=== PATIENT | male | born 1935 | race Caucasian/White ===

== ENCOUNTER 2018-07-12 17:55 | Inpatient (IN) | payer MEDICARE, OTHER ==
[~2018-07-12] VITALS: Ht 185.4 cm; Wt 83.6 kg
[~2018-07-12 17:55] MED LIST: ATOR10 PO; BENA20 PO; DUTA.5 PO; ERYT.5TO OS; FINASTERIDE1 MG PO; LOVA20; NAPR220; Naproxen250 MG PO; Prednisone20 MG PO; TAMS.4ER PO; Zantac150 MG PO
[2018-07-12 19:18] LABS: BASOPHILS ABSOLUTE AUTO 0.08 K/mm3 (0.00-0.23); BASOPHILS PERCENT AUTO 1 % (0-2); EOSINOPHILS ABSOLUTE AUTO 0.16 K/mm3 (0.00-0.68); EOSINOPHILS PERCENT AUTO 2 % (0-6); Hematocrit 40.4 % (37.0-53.0); IMMATURE GRAN ABSOLUTE AUTO 0.06 K/mm3 (0.00-0.10); IMMATURE GRAN PERCENT AUTO 1 % (0-1); LYMPHOCYTES ABSOLUTE AUTO 1.57 K/mm3 (0.84-5.20); LYMPHOCYTES PERCENT AUTO 18 % (21-46); MONOCYTES ABSOLUTE AUTO 0.91 K/mm3 (0.16-1.47); MONOCYTES PERCENT AUTO 11 % (4-13); Mean Corpuscular HGB 30.7 pg (26.0-34.0); Mean Corpuscular HGB Conc 32.2 g/dL (31.5-36.5); Mean Corpuscular Volume 95 fL (80-100); Mean Platelet Volume 11.6 fL (9.1-12.4); NEUTROPHILS ABSOLUTE AUTO 5.84 K/mm3 (1.96-9.15); NEUTROPHILS PERCENT AUTO 68 % (41-73); Platelet Count 170 K/mm3 (150-400); RDW Standard Deviation 48.8 fL (35.1-46.3); Red Blood Cell Count 4.24 M/mm3 (4.30-5.90); White Blood Cell Count 8.62 K/mm3 (4.00-11.30)
[2018-07-12] MEDS ORDERED: Vitamin C100 M1 (19:39)
[2018-07-12] MEDS ORDERED: ERGO400 (19:39)
[2018-07-12] MEDS ORDERED: CYAN500 (19:39)
[2018-07-12 19:43] LABS: Alanine Aminotransfer (ALT/SGP 12 U/L (12-78); Albumin, Blood 3.3 g/dL (3.4-5.0); Alk Phos 27 U/L (50-136); Anion Gap 6 mmol/L (6-16); Aspartate Aminotrans (AST/SGOT 21 U/L (12-37); Bilirubin, Total 0.2 mg/dL (0.1-1.0); Blood Urea Nitrogen 34 mg/dL (8-24); CO2, Blood 25 mmol/L (21-32); Calcium, Blood 8.3 mg/dL (8.5-10.1); Chloride, Blood 108 mmol/L (98-108); Creatinine, Blood 1.03 mg/dL (0.60-1.20); Globulin, Blood 3.4 g/dL (2.2-4.0); Glomerular Filtration Rate >60 (60-); Glucose, Blood 177 mg/dL (70-99); Potassium, Blood 4.4 mmol/L (3.5-5.5); Sodium, Blood 139 mmol/L (136-145); Total Protein, Blood 6.7 g/dL (6.4-8.2)
[2018-07-12] MEDS ORDERED: Tylenol325 MG PO (19:53)
[2018-07-12] MEDS ORDERED: Benazepril HCl10 MG PO (19:53)
[2018-07-12] MEDS ORDERED: Flomax0.4 MG PO (19:53)
[2018-07-12] MEDS ORDERED: Ferrous Sulfat325 MG PO (19:53)
[2018-07-12] MEDS ORDERED: FINA5 PO (19:53)
[2018-07-12] MEDS ORDERED: ESZO3 PO (19:53)
[2018-07-12] MEDS ORDERED: Mobic15 MG PO (19:53)
[2018-07-12 21:24] LABS: International Normalized Ratio 0.97; Prothrombin Time Results 10.3 Sec (9.7-11.5)
[2018-07-12] MEDS ORDERED: MELO7.5 PO (23:19)
[2018-07-13 00:57] LABS: Source, Urine Voided
[2018-07-13 01:00] LABS: Bilirubin, Urine Neg (Neg); Blood, Urine Neg (Neg); Glucose Qualitative, Urine Neg (Neg); Ketones, Urine Neg (Neg); Leukocyte Esterase, Urine Neg (Neg); Nitrite, Urine Neg (Neg); Protein, Urine Neg (Neg); Specific Gravity, Urine 1.025 (1.003-1.022); Urobilinogen, Urine NORM (Normal)
[2018-07-13 01:05] LABS: Appearance, Urine Clear (Clear); Color, Urine Yellow (P-Yellow)
[2018-07-13 04:55] LABS: Hematocrit 37.1 % (37.0-53.0); Hemoglobin 11.7 g/dL (13.5-17.5); Mean Corpuscular HGB Conc 31.5 g/dL (31.5-36.5); Mean Corpuscular Volume 95 fL (80-100); Mean Platelet Volume 11.6 fL (9.1-12.4); Platelet Count 148 K/mm3 (150-400); RDW Coefficient Variation 14.1 % (11.7-14.2); RDW Standard Deviation 48.6 fL (35.1-46.3); White Blood Cell Count 7.03 K/mm3 (4.00-11.30)
[2018-07-13 05:35] LABS: Anion Gap 6 mmol/L (6-16); Blood Urea Nitrogen 33 mg/dL (8-24); Bun/Creatinine Ratio 37.6 (12.0-20.0); CO2, Blood 26 mmol/L (21-32); Calcium, Blood 7.6 mg/dL (8.5-10.1); Chloride, Blood 112 mmol/L (98-108); Creatinine, Blood 0.88 mg/dL (0.60-1.20); Glomerular Filtration Rate >60 (60-); Glucose, Blood 106 mg/dL (70-99); Potassium, Blood 4.2 mmol/L (3.5-5.5); Sodium, Blood 144 mmol/L (136-145)
--- NOTE | 2018-07-13 06:43 | NUR ---
SHIFT SUMMARY PT ARRIVED TO ROOM APPROX 2129. NO C/O PAIN NO STOOL. REFUSED SCD'S. SAID HE WASN'T ABLE TO SLEEP VERY WELL. A/O. USING URINAL AT BEDSIDE. PROTONIX DRIP. CALL LIGHT IN REACH
--- NOTE | 2018-07-13 08:18 | NUR ---
PT HAD 1 BM WITH RODRIGUEZ RED BLOOD IN TOILET, NOTIFIED DR SAM. WILL CONTINUE TO MONITOR.
[2018-07-13 12:20] LABS: Stool Occult Bld Immuno 1 Positive (NEGATIVE)
--- NOTE | 2018-07-13 20:18 | NUR ---
SHIFT SUMMARY PT A&OX4. ANXIOUS BUT COOPERATIVE WITH CARE. PT RESTING IN BED DURING SHIFT, SBA TO BATHROOM. PT DENIES PAIN, SOB AND N/V DUIRNG SHIFT. PT HAD X2 BMS WITH RED BLOOD, DR SAM AND DR ROBBINS NOTIFIED. DR ROBBINS AT BED SIDE THIS AFTERNOON, PT ADVANCED TO CLEAR LIQUIDS UNTIL AFTER BREAFAST ON 07/14/18, THEN NOTHING EXCEPT ICE CHIPS, PLANS FOR UPPER AND LOWER SCOPE, STARTING BOWEL PREP THIS EVENING. STOOL SAMPLE COLLECTED AND SPECIMEN SENT THIS AM. VSS. NO OTHER ACUTE CHANGES NOTED DURING SHIFT. REPORT GIVEN TO ONCOMING RN.
--- NOTE | 2018-07-14 04:41 | NUR ---
SHIFT SUMMARY PT SLEEPING, RESTING QUIETLY AT START OF SHIFT. WOKE EASILY FOR SHIFT REPORT. PT ADMITTED FOR MELENA. STARTED GOLYTELY AFTER SHIFT REPORT. STOOLS WATERY, BUT BLOODY. 2ND PART OF GOLYTELY TO BE GIVEN AT 0600. PT TO HAVE UPPER AND LOWER SCOPE TODAY; TO BE NPO EXCEPT ICE CHIPS, AFTER CL BREAKFAST. HX OF COLON RESECTION, GIB'S, AND DIVERTICULITIS. PROTONIX DRIP INFUSING PER EMAR. PT HAS BEEN INDEPENDANT TO BTHRM WITH IV PUMP. DENIED NEEDS. CALL LT IN REACH.
[2018-07-14 05:04] LABS: BASOPHILS ABSOLUTE AUTO 0.05 K/mm3 (0.00-0.23); BASOPHILS PERCENT AUTO 1 % (0-2); EOSINOPHILS ABSOLUTE AUTO 0.03 K/mm3 (0.00-0.68); EOSINOPHILS PERCENT AUTO 0 % (0-6); Hemoglobin 11.6 g/dL (13.5-17.5); IMMATURE GRAN ABSOLUTE AUTO 0.03 K/mm3 (0.00-0.10); IMMATURE GRAN PERCENT AUTO 0 % (0-1); LYMPHOCYTES ABSOLUTE AUTO 1.28 K/mm3 (0.84-5.20); LYMPHOCYTES PERCENT AUTO 17 % (21-46); MONOCYTES PERCENT AUTO 11 % (4-13); Mean Corpuscular HGB 30.4 pg (26.0-34.0); Mean Corpuscular HGB Conc 32.2 g/dL (31.5-36.5); Mean Corpuscular Volume 94 fL (80-100); Mean Platelet Volume 11.4 fL (9.1-12.4); NEUTROPHILS ABSOLUTE AUTO 5.37 K/mm3 (1.96-9.15); NEUTROPHILS PERCENT AUTO 71 % (41-73); Platelet Count 157 K/mm3 (150-400); RDW Coefficient Variation 14.1 % (11.7-14.2); RDW Standard Deviation 48.2 fL (35.1-46.3); Red Blood Cell Count 3.82 M/mm3 (4.30-5.90); White Blood Cell Count 7.56 K/mm3 (4.00-11.30)
--- NOTE | 2018-07-14 10:20 | NUR ---
GAINED PT'S PERMISSION TO CARE FOR HIM 07.15.18
--- NOTE | 2018-07-14 13:00 | NUR ---
PT TO DAY SURGERY FOR EGD AND COLONOSCOPY.
--- NOTE | 2018-07-14 13:50 | NUR ---
pt brought to [facility] in preparation for scope. 3 lead with hr 84-140's. ekg done, a-fib rvr. pt reports no history of afib. discussed with dr. hammer. then dr. monte with anethesia. decicion made to postpone procedure until better hr control and seen by cardiology. hr remain 130's on 3 lead. report given to medical floor rn and patient transfered back to room. denies any chest pain, nausea, sob.
--- NOTE | 2018-07-14 14:10 | NUR ---
CONSULT CALLED TO DR WALKER, SPOKE WITH PHYSICIAN.
--- NOTE | 2018-07-14 14:12 | NUR ---
PT RETURNED TO MEDICAL FLOOR FROM DAY SURGERY AT 1345. THE SCOPE WAS NOT FINISHED DUE TO AN EKG SHOWING AFIB WITH RVR AND A RATE OF 130 BPM. PT IS IN HIS ROOM, ASYMPTOMATIC AND ALERT AND ORIENTED. DR. SAM WAS NOTIFIED AND HAS ORDERED MEDICATIONS AND TELEMETRY. WILL TREAT PER ORDERS.
--- NOTE | 2018-07-14 14:34 | NUR ---
On 07/14/18 @0569 this patient gave this professional nursing tutor verbal consent to care for during clinicals on 07/15/18 as well as access necessary medical information.
--- NOTE | 2018-07-14 15:40 | NUR ---
THE PT RECEIVED TWO DOSES OF LOPRESSOR PER EMAR. THE PT RATE IS 93 BPM PER PCU GLACING MACHINE TENDER.
--- NOTE | 2018-07-14 16:26 | NUR ---
CALLED AND SPOKE WITH TELE CVICU NURSE, PLASTER CASTER REPORTS PT IS NSR AT 80 REPORTS CONVERTED BACK AT APROX 1535.
--- NOTE | 2018-07-14 16:55 | NUR ---
THIS PT IS ALERT AND ORIENTED AND VERY PEASANT. HE COMPLETED BOWEL CARE AT 0715 TODAY. HE WAS SCHEDULED FOR EGD AND COLONOSCOPY AT 1300. WHILE IN THE ENDOSCOPY SUITE, HE WAS FOUND TO HAVE NEW ONSET AFIB WITH A RATE IN THE 140'S. THE PROCEDURE WAS CANCELLED FOR THE DAY. THE PT WAS TRANSFERRED BACK TO HIS ROOM ON MEDICAL FLOOR AND PLACED ON TELE AND GIVEN 5MG LOPRESSOR PER EMAR TO DECREASE HR. 5MG LOPRESSOR WAS GIVEN X2 UNTIL HIS HR WAS BELOW 110. HIS CURRENT B/P IS 131/68 AND HR IS 83. HE IS NOW IN NORMAL SINUS RHYTHM WITH A RATE OF 83. AN ECHO IS BEING PERFORMED NOW. THE PT IS TO STAY ON CLEAR LIQUIDS UNTIL MIDNIGHT AND NPO AFTER MIDNIGHT.
--- NOTE | 2018-07-14 18:08 | NUR ---
Echocardiogram completed.
[2018-07-14 18:19] LABS: Hematocrit 34.9 % (37.0-53.0); Hemoglobin 11.3 g/dL (13.5-17.5)
--- NOTE | 2018-07-15 04:05 | NUR ---
PT NPO @ MIDNIGHT, COLONOSCOPY SCHEDULED FOR THIS AM. PT SLEPT MOST THE NIGHT. C/O HEADACHE X1 THAT RESOLVED W/O MEDICATION. CALL LIGHT IN REACH
[2018-07-15 04:29] LABS: BASOPHILS ABSOLUTE AUTO 0.05 K/mm3 (0.00-0.23); BASOPHILS PERCENT AUTO 1 % (0-2); EOSINOPHILS ABSOLUTE AUTO 0.03 K/mm3 (0.00-0.68); EOSINOPHILS PERCENT AUTO 0 % (0-6); Hematocrit 33.6 % (37.0-53.0); Hemoglobin 10.9 g/dL (13.5-17.5); IMMATURE GRAN ABSOLUTE AUTO 0.06 K/mm3 (0.00-0.10); IMMATURE GRAN PERCENT AUTO 1 % (0-1); LYMPHOCYTES ABSOLUTE AUTO 1.04 K/mm3 (0.84-5.20); LYMPHOCYTES PERCENT AUTO 12 % (21-46); MONOCYTES ABSOLUTE AUTO 0.95 K/mm3 (0.16-1.47); MONOCYTES PERCENT AUTO 11 % (4-13); Mean Corpuscular HGB 30.5 pg (26.0-34.0); Mean Corpuscular HGB Conc 32.4 g/dL (31.5-36.5); Mean Corpuscular Volume 94 fL (80-100); Mean Platelet Volume 11.1 fL (9.1-12.4); NEUTROPHILS ABSOLUTE AUTO 6.52 K/mm3 (1.96-9.15); NEUTROPHILS PERCENT AUTO 75 % (41-73); Platelet Count 136 K/mm3 (150-400); RDW Coefficient Variation 14.1 % (11.7-14.2); RDW Standard Deviation 48.9 fL (35.1-46.3); Red Blood Cell Count 3.57 M/mm3 (4.30-5.90); White Blood Cell Count 8.65 K/mm3 (4.00-11.30)
--- NOTE | 2018-07-15 16:30 | NUR ---
PT TRANSFERRED TO ENDOSCOPY VIA STRETCHER IN NO ACUTE DISTRESS.
--- NOTE | 2018-07-15 17:20 | NUR ---
Jerman Crum is a liz man who openly expressed his concern for his health. He took care of his with dementia for many years before her , and became tearful when descibing her passing. 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 He is awating test results for clear answers and POC. He wishes this would happen faster. He was personable and appreciaitive of prayer, encouragement and affirmation. I will remain available.
--- NOTE | 2018-07-15 17:20 | NUR ---
07/15/18 1720 Amado Tomlinson 1700 See Anesthesia record
== END 2018-07-15 18:39 | disposition left against medical advice (07) | DRG 379 ==
LOC: ER 17:55 → MEDS 17:56
PROVIDERS: Emergency Medicine; Student in an Organized Health Care Education/Training Program; ADMIT Hospitalist
PROC: 0DJ08ZZ Inspection of Upper Intestinal Tract, Via Natural or Artificial Opening Endoscopic (ICD-10-PCS; principal; 2018-07-15 16:30)
PROC: 0DJD8ZZ Inspection of Lower Intestinal Tract, Via Natural or Artificial Opening Endoscopic (ICD-10-PCS; 2018-07-15 16:30)
DX: K92.1 Melena (principal); E78.5 Hyperlipidemia, unspecified; Z87.891 Personal history of nicotine dependence; Z85.46 Personal history of malignant neoplasm of prostate; Z90.49 Acquired absence of other specified parts of digestive tract; E11.9 Type 2 diabetes mellitus without complications; I10 Essential (primary) hypertension; I48.0 Paroxysmal atrial fibrillation
CPT/HCPCS: 36415; 80048; 80053; 81003; 82272; 82274; 85014; 85018; 85025; 85027; 85610; 86850; 86870; 86900; 86901; 93005; 93010; 93306; 96365; 96366; 96374; 96376; 99285-25; C9113; G0378; J2405; J7030; J7120

== ENCOUNTER 2018-10-23 10:16 | Day surgery (SDC) | payer MEDICARE, OTHER ==
[~2018-10-23] VITALS: Ht 185.4 cm; Wt 88.6 kg
[~2018-10-23 10:16] MED LIST changes: +Benazepril HCl10 MG PO; +COENZYME Q PO; +CYAN500; +ERGO400; +ESZO3 PO; +FINA5 PO; +Ferrous Sulfat325 M2 PO; +Ferrous Sulfat325 MG PO; +Flomax0.4 MG PO; +Glucosamine &1 EACH PO; +MELO7.5 PO; +METO25ER PO; +Mobic15 MG PO; +Tylenol325 MG PO; +Vitamin C100 M1
--- NOTE | 2018-10-23 12:10 | NUR ---
10/23/18 1210 Carolyn Walsh assumed care of pt from [facility]. PT SITTING IN RECLINER WITH LEG ELEVATED AND ICE PACK IN PLACE. DSG C/D/I DENIES PAIN AND DENIES NAUSEA AT THIS TIME. PTS RIDE WAS CALLED AND LEFT MESSAGE THAT PT WOULD BE READY TO GO HOME SHORTLY
== END 2018-10-23 12:48 | disposition home or self-care (01) ==
LOC: ORSCSDS 10:16
PROVIDERS: Podiatrist Foot & Ankle Surgery
PROC: 0QBP0ZZ Excision of Left Metatarsal, Open Approach (ICD-10-PCS; principal; 2018-10-23 11:30)
DX: M25.775 Osteophyte, left foot (principal); I10 Essential (primary) hypertension; F17.210 Nicotine dependence, cigarettes, uncomplicated; Z79.899 Other long term (current) drug therapy
CPT/HCPCS: J1100; J2370; J2405; J2704; J3010; J7120